=== PATIENT | male | born 1945 | race Caucasian/White ===

== ENCOUNTER 2018-06-12 13:12 | Emergency (ER) | payer OTHER ==
--- NOTE | 2018-06-12 15:16 | EDPHY ---
H & P Stated Complaint: Nose bleeds for the last week. Time Seen by Provider: 06/12/18 14:03 HPI/ROS: CHIEF COMPLAINT: Nose bleed HISTORY OF PRESENT ILLNESS: This is a 72-year-old male with a history of atrial fibrillation for which he takes Xarelto. He presents with nose bleed. He has had intermittent nose bleeds on and off this week. However, today he developed a nose bleed that did not stop, prompting him to come to the emergency department. REVIEW OF SYSTEMS: A ten system review of systems was performed and is negative with the exception of the items mentioned in the HPI. Past medical history: 1. Atrial fibrillation 2. Hypertension 3. Sleep apnea on CPAP 4. Prostate cancer Past surgical history: Surgery for prostate cancer Social history: He lives with his . 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 No tobacco use. General Appearance: Alert. Vital signs reviewed. Blood pressure 139/97. Eyes: Pupils equal and round, no conjunctival injection, no discharge. Anicteric. ENT, Mouth: Mucous membranes are moist, no oropharyngeal erythema or edema. Small bladder of blood dripping into the posterior oropharynx. Bleeding from the right naris. Neck: No lymphadenopathy, supple. Respiratory: Lungs are clear to auscultation; no wheezes, rales, or rhonchi. Cardiovascular: Regular rate and rhythm; no murmur, rub, or gallop. Gastrointestinal: Abdomen is soft and nontender, no masses or organomegaly, bowel sounds normal. Skin: Warm and dry, no rashes on exposed skin, normal color. Back: Nontender to palpation over the thoracolumbar spine. No CVAT. Extremities: No lower extremity edema, no calf tenderness or swelling. Neurological: Alert and oriented. Moving all four extremities easily and equally. HILLARY. EOMI. Facial expression symmetric. Tongue midline. Psychiatric: Normal affect. - Personal History Current Tetanus Diphtheria and Acellular Pertussis (TDAP): Yes - Medical/Surgical History Hx Asthma: No Hx Chronic Respiratory Disease: No Hx Diabetes: No Hx Cardiac Disease: No Hx Renal Disease: No Hx Cirrhosis: No Hx Alcoholism: No Hx HIV/AIDS: No Hx Splenectomy or Spleen Trauma: No Other PMH: A fib. HTN. Constitutional: Initial Vital Signs Temperature (C) 36.6 C 06/12/18 13:15 Heart Rate 85 06/12/18 13:15 Respiratory Rate 18 06/12/18 13:15 Blood Pressure 139/67 H 06/12/18 13:15 O2 Sat (%) 97 06/12/18 13:15 O2 Delivery Mode Room Air Allergies/Adverse Reactions: Penicillins Allergy (Verified 06/12/18 13:20) Home Medications: Medication Instructions Recorded Xarelto 06/12/18 Medical Decision Making Procedures: Epistaxis requiring nasal packing. Patient is on Xarelto. He arrived with tissue in the left nostril and persistent bleeding from the right nostril. On examination the breathing from the right nostril was fairly brisk and I could not identify a specific bleeding site after the removal of clots. There was no bleeding site in the left naris after removal of the tissue. Afrin applied to both nostrils. I continued to be unable to visualize the bleeding site in the right naris. An anterior rhino stat was placed without difficulty. He had no further bleeding. ED Course/Re-evaluation: Patient's nose bleed was stopped with anterior nasal packing. He was observed in the emergency department for over 45 min after the packing was placed with no return of bleeding. I chose to discharge him without antibiotics. He has an allergy to penicillin and has been taking Xarelto which interacts with several antibiotics. I feel that he is unlikely to experience septic shock or other infection related to having nasal packing in place for couple of days. He has been referred to Dr. London Galeas, otolaryngology, for removal of the nasal packing. At 4:25 p.m. I spoke with the patient's primary care physician, Dr. Piña in [place]. He recommends that the patient discontinue his Xarelto while the packing is in place and then resume it when the packing is removed. I have spoken to the patient's and relayed this information to her. Differential Diagnosis: I considered a differential diagnosis that includes but is not limited to coagulopathy, nasal trauma, infection, hypertension. - Data Points Laboratory Results: 06/12/18 15:42 POC Hgb 15.0 gm/dL gm/dL (13.7-17.5) POC Hct 44 % % (40-51) POC Sodium 144 mEq/L mEq/L (135-145) POC Potassium 3.6 mEq/L mEq/L (3.3-5.0) POC Chloride 105 mEq/L mEq/L (97-110) POC BUN 29 mg/dL H mg/dL (7-23) POC Creatinine 1.2 mg/dL mg/dL (0.7-1.3) POC Glucose 109 mg/dL H mg/dL (70-100) Point of Care Test Results: Chemistry 06/12/18 15:42 POC Sodium 144 mEq/L mEq/L (135-145) POC Potassium 3.6 mEq/L mEq/L (3.3-5.0) POC Chloride 105 mEq/L mEq/L (97-110) POC BUN 29 mg/dL H mg/dL (7-23) POC Creatinine 1.2 mg/dL mg/dL (0.7-1.3) POC Glucose 109 mg/dL H mg/dL (70-100) ISTAT H&H 06/12/18 15:42 POC Hgb 15.0 gm/dL gm/dL (13.7-17.5) POC Hct 44 % % (40-51) Departure - Departure Disposition: Home, Routine, Self-Care Clinical Impression: Acute anterior epistaxis Condition: Good Instructions: Nosebleed (ED) Additional Instructions: You should follow up with Ear, Nose, and Throat on Sunday. I am referring you to Dr. London Galeas. Call his office this afternoon or early tomorrow morning to schedule an appointment. Let the office staff know that you were seen in the emergency department with a nose bleed and that you have nasal packing in place. I have not yet spoken to Dr. Piña. Please call his office and speak with him about your Xarelto. Let him know that you have been having intermittent nose bleeds all week and finally had a nose bleed so persistent that you had to come to the emergency department. Let him know that you have nasal packing in place. Ask him what he would like you to do about taking your Xarelto. If you have recurrent nose bleed or any new or concerning problems such as fever or difficulty breathing, please return for another evaluation. Referrals: SHAY PIÑA [Other] - As per Instructions London Galeas MD [Medical Doctor] - As per Instructions
[2018-06-12 16:11] VITALS: BP 103/86
== END 2018-06-12 16:11 | disposition home or self-care (01) ==
PROC: 2Y41X5Z Packing of Nasal Region using Packing Material (ICD-10-PCS; principal; 2018-06-12)
DX: R04.0 Epistaxis (principal); I48.91 Unspecified atrial fibrillation; I10 Essential (primary) hypertension; Z79.01 Long term (current) use of anticoagulants
CPT/HCPCS: 82435-PO; 82565-PO; 82947-PO; 84132-PO; 84295-PO; 84520-PO; 85014-ER